=== PATIENT | male | born 1990 | race Caucasian/White ===

== ENCOUNTER → 2016-04-23 | Outpatient (REF) | payer OTHER | LOC: M SFHCLERA 13:45 | PROVIDERS: ATTEND Physician Assistant | DX: R50.9 Fever, unspecified (principal) ==

== ENCOUNTER → 2018-02-20 | Outpatient (REF) | payer OTHER | LOC: M SFHCLERA 13:58 | PROVIDERS: ATTEND Nurse Practitioner Family | DX: R53.81 Other malaise (principal) ==

== ENCOUNTER → 2018-02-24 | Outpatient (CLI) | payer OTHER ==
--- NOTE | 2018-02-24 20:52 | REP ---
CHEST PA AND LATERAL: 02/24/2018. Comparison: 01/28/2011. Clinical history: Cough, dyspnea, rhonchi on physical exam. Findings. Two-view show lung jaquez well inflated. There is peribronchial thickening and streaky densities suggesting bronchitis or reactive airway disease. No dense consolidation or pleural effusion. No air bronchograms. Heart is not enlarged and no lateral pleural thickening apical scarring or pneumothorax. Mid and upper lung zones clear. The aorta and airway intact. Hilar contours symmetric. Bony thorax without focal lesion. Impression: 1. Perihilar changes of bronchitis or reactive airway disease without dense consolidation or effusion. Electronically Signed by Kem Kothari MD 02/24/2018 08:55 P
== END ==
LOC: M LRY 18:38
PROVIDERS: ATTEND Nurse Practitioner Family
DX: R91.8 Other nonspecific abnormal finding of lung field (principal); R09.89 Other specified symptoms and signs involving the circulatory and respiratory systems

== ENCOUNTER → 2018-03-31 | Outpatient (REF) | payer OTHER | LOC: M SFHCLERA 20:45 | PROVIDERS: ATTEND Nurse Practitioner Family | DX: J45.901 Unspecified asthma with (acute) exacerbation (principal) ==

== ENCOUNTER 2019-04-23 13:25 | Emergency (ER) | payer OTHER ==
[~2019-04-23] VITALS: Ht 180.3 cm; Wt 202.2 kg
[2019-04-23] MEDS ORDERED: ISOVUE-370 76% 100ML VIAL (Q9967) As Ordered ONE (13:38)
[2019-04-23 14:14] LABS: BASO # 0.1 10^3/uL (0.0-0.2); BASO % 0.5 % (0.0-1.0); HEMATOCRIT 38.3 % (42.0-52.0); HEMOGLOBIN 12.6 g/dl (13.5-17.5); LYMPH # 2.3 10^3/uL (1.5-5.0); LYMPH % 17.5 % (24.0-44.0); MEAN CORPUSCULAR HEMOGLOBIN 29.1 pg (27.0-33.0); MEAN CORPUSCULAR HGB CONC 32.9 g/dl (32.0-36.5); MEAN CORPUSCULAR VOLUME 88.5 fl (80.0-96.0); MONO # 0.5 10^3/uL (0.0-0.8); MONO % 3.8 % (0.0-5.0); NEUTROPHILS # 10.4 10^3/uL (1.5-8.5); NEUTROPHILS % 77.4 % (36.0-66.0); PLATELET COUNT, AUTOMATED 317 10^3/uL (150-450); RED BLOOD COUNT 4.33 10^6/uL (4.30-6.10); WHITE BLOOD COUNT 13.4 10^3/uL (4.0-10.0)
[2019-04-23 14:25] LABS: INR 1.12; PROTHROMBIN TIME 14.1 SECONDS (11.8-14.0)
[2019-04-23 14:26] LABS: PARTIAL THROMBOPLASTIN TIME 27.1 SECONDS (25.0-38.4)
[2019-04-23] MEDS ORDERED: ONDANSETRON 4MG/2ML VIAL (J2405) IV ONE ×2 (14:30→14:45)
--- NOTE | 2019-04-23 14:31 | REP ---
Head CT without contrast: History: Trauma. Comparison study: No comparison study. CT findings: There is spray artifact related to patient body habitus in the lower levels of the scan. Bone window settings demonstrate an intact bony calvarium. There is no evidence of skull fracture or incidental bony calvarial lesion. The visualized paranasal sinuses appear clear. No intraorbital abnormality is seen. On soft tissue window setting images; the lateral, third, and fourth ventricles are normal in size and position. Soto-white differentiation pattern is normal above and below the tentorium. There are is no evidence of intracranial hemorrhage. No mass, edema, infarction, or midline shift is seen. No extra-axial fluid collection is appreciated. Impression: Negative noncontrast head CT. Electronically Signed by Ozzy Baker MD 04/23/2019 02:23 P
--- NOTE | 2019-04-23 14:33 | REP ---
CT study of the cervical spine without contrast: History: Trauma Technique: Helical scanning is acquired and overlapping 2 mm high resolution axial images were generated and reviewed at bone and soft tissue window settings. Coronal and sagittal multiplanar re-formations images are generated. CT findings: There is considerable image degradation artifact related to patient body habitus. There is no evidence of cervical spine element fracture. No skull base fracture is seen. Cervical vertebral body heights are preserved. Alignment is normal. Facet joints are normally aligned bilaterally at each cervical level on multiplanar re-formations images. There is no evidence of intraspinal or paraspinal hematoma. No extra vertebral abnormality is seen. Impression: Image degradation related to patient body habitus, otherwise negative CT study of the cervical spine without contrast. No fracture seen. Electronically Signed by Ozzy Baker MD 04/23/2019 02:25 P
[2019-04-23 14:37] LABS: ALBUMIN 3.2 GM/DL (3.2-5.2); ALT/SGPT 46 U/L (12-78); AMYLASE 28 U/L (25-115); BILIRUBIN,DIRECT 0.2 MG/DL (0.0-0.2); BILIRUBIN,TOTAL 0.6 MG/DL (0.2-1.0); BLOOD UREA NITROGEN 13 MG/DL (7-18); CALCIUM LEVEL 8.3 MG/DL (8.5-10.1); CARBON DIOXIDE LEVEL 24 MEQ/L (21-32); CHLORIDE LEVEL 106 MEQ/L (98-107); CK-MB VALUE MASS 1.3 NG/ML (<3.6); CPK CREATINE PHOSPHOKINASE 201 U/L (39-308); ETHYL ALCOHOL (ETHANOL) < 0.003 % (0.000-0.010); GLOMERULAR FILTRATION RATE > 60.0 (>60); GLUCOSE, FASTING 135 MG/DL (70-100); LIPASE 66 U/L (73-393); MB/CK RELATIVE INDEX 0.65 (< OR =4); SODIUM LEVEL 138 MEQ/L (136-145); TOTAL PROTEIN 6.7 GM/DL (6.4-8.2); TROPONIN I < 0.02 NG/ML (< 0.10)
[2019-04-23] MEDS ORDERED: MORPHINE 4 MG/ML 1ML VIAL/SYRINGE (J2270) IV ONE (14:45)
[2019-04-23 14:47] LABS: VENOUS BASE EXCESS -4.4 (-2.0-2.0); VENOUS HCO3 20.8 MEQ/L (23.0-27.0); VENOUS O2 SATURATION 73.7 % (60.0-80.0); VENOUS PARTIAL PRESSURE CO2 38.8 mmHg (38.0-50.0); VENOUS PARTIAL PRESSURE O2 41.8 mmHg (30.0-50.0); VENOUS PH 7.348 UNITS (7.330-7.430); VENOUS STANDARD HCO3 20.4 MEQ/L
[2019-04-23] MEDS: MORPHINE 4 MG/ML 1ML VIAL/SYRINGE (J2270) IV PRN ×2 (15:16→16:50)
--- NOTE | 2019-04-23 15:47 | REP ---
HISTORY: Pain after trauma. The examination is nondiagnostic in the lateral view due to technique and patient's body habitus. The AP view shows no gross abnormality. Consider CT. Electronically Signed by Rod Lamb DO 04/23/2019 03:54 P
--- NOTE | 2019-04-23 15:48 | REP ---
Limited abdominal ultrasound for free fluid after trauma: A low four quadrants of the abdomen are evaluated with ultrasound. No free fluid is identified by ultrasound. The study is limited because of patient body habitus. Impression: No free abdominal fluid is identified by ultrasound. Electronically Signed by Delta Clayton MD 04/23/2019 03:36 P
--- NOTE | 2019-04-23 15:49 | REP ---
HISTORY: Pain after trauma. The lateral view is nondiagnostic. There is no definition of any of the lumbar vertebral bodies. The AP examination shows no evidence of a gross abnormality. IMPRESSION: Limited examination showing no abnormality as described above. Electronically Signed by Rod Lamb DO 04/23/2019 03:54 P
--- NOTE | 2019-04-23 15:50 | REP ---
PORTABLE AP PELVIS: REASON FOR EXAM: Trauma. There is no evidence of an acute fracture. Electronically Signed by Rod Lamb DO 04/23/2019 03:54 P
--- NOTE | 2019-04-23 16:02 | REP ---
Portable chest, 02:15 p.m., single AP view with the patient supine: Comparison is 02/24/2018. There is an incomplete inspiratory effort. The visualized lung jaquez are clear. Cardiac size appears enlarged, however there has magnification from positioning. The brett, mediastinum, skeletal structures are. Impression: No definite acute cardiopulmonary findings. Electronically Signed by Delta Clayton MD 04/23/2019 02:41 P
[2019-04-23] MEDS ORDERED: CALC200T3 PO (16:06)
[2019-04-23] MEDS ORDERED: VITA100018 PO (16:06)
[2019-04-23] MEDS ORDERED: VITMTA PO (16:06)
[2019-04-23 16:54] VITALS: BP 107/49
--- NOTE | 2019-04-23 19:38 | ECGEPIP ---
[facility] - ED Test Date: 2019-04-23 Pat Name: SAMANTHA MCCLELLAND Department: Room: - Gender: Male [employer]: miranda : 1990 Requested By: Nelida Rothman Order Number: [id number] Reading MD: Param Freeman Measurements Intervals [place] Rate: 99 P: 43 TX: 175 QRS: -18 QRSD: 158 T: 83 QT: 398 QTc: 511 Interpretive Statements SINUS RHYTHM LEFT BUNDLE BRANCH BLOCK NO PRIORS FOR COMPARISON Electronically Signed on 04-23-2019 19:37:59 EDT by Param Freeman
== END 2019-04-23 17:18 | disposition short-term general hospital (02) ==
LOC: EDBD 13:25 → M ED 13:25
DX: M54.9 Dorsalgia, unspecified (principal); V43.52XA Car driver injured in collision with other type car in traffic accident, initial encounter; Y92.9 Unspecified place or not applicable; Y93.9 Activity, unspecified; Y99.9 Unspecified external cause status; I44.7 Left bundle-branch block, unspecified; E66.01 Morbid (severe) obesity due to excess calories; J45.909 Unspecified asthma, uncomplicated; Z87.891 Personal history of nicotine dependence; Z79.899 Other long term (current) drug therapy
CPT/HCPCS: 70450; 71045; 72072; 72110; 72125; 72170; 76705; 80047; 80048; 80076; 82150; 82550; 82553; 82803; 83690; 84484; 85025; 85610; 85730; 86850; 86900; 86901; 93005; 93041; 96374; 96375; 96376; 99285; G0480; J2270; J2405

== ENCOUNTER → 2019-08-24 | Outpatient (CLI) | payer OTHER ==
[~2019-08-24] MED LIST: CALC200T3 PO; VITA100018 PO; VITMTA PO
--- NOTE | 2019-08-25 15:02 | REP ---
BILATERAL RIB SERIES: Four views of bilateral ribs performed. There appear to be healed fractures of the lateral aspects of the left 7th and 8th ribs. No other rib fracture of bone lesion is seen bilaterally. An accompanying view of the chest demonstrates no acute infiltrate. Lungs are clear. Heart and mediastinum are unremarkable. IMPRESSION: Healed fractures lateral left 7th and 8th ribs. No other rib abnormality is seen. Electronically Signed by Delta Soto MD 08/25/2019 11:51 P
--- NOTE | 2019-08-25 15:03 | REP ---
THORACIC SPINE SERIES: Four AP and lateral views of the thoracic spine are performed. There is no compression fracture or malalignment with normal thoracic kyphosis. There is mild diffuse spurring. There is some minimal disc space narrowing and subchondral sclerosis at several mid thoracic levels. The posterior elements are intact. IMPRESSION: Mild diffuse degenerative changes. No fracture or dislocation. Electronically Signed by Delta Soto MD 08/25/2019 11:51 P
--- NOTE | 2019-08-25 15:03 | REP ---
LEFT SHOULDER, THREE VIEWS: There is no evidence of an acute fracture, dislocation, or intrinsic bone disease. No significant arthritic changes are seen. IMPRESSION: No fracture or dislocation. Electronically Signed by Delta Soto MD 08/25/2019 11:51 P
== END ==
LOC: M LRY 16:38
PROVIDERS: ATTEND Family Medicine
DX: S22.42XA Multiple fractures of ribs, left side, initial encounter for closed fracture (principal); X58.XXXA Exposure to other specified factors, initial encounter; Y92.9 Unspecified place or not applicable; M51.34 Other intervertebral disc degeneration, thoracic region

== ENCOUNTER → 2020-02-08 | Outpatient (CLI) | payer OTHER ==
--- NOTE | 2020-02-08 17:23 | REPVR ---
PROCEDURE INFORMATION: Exam: CT Thoracic Spine Without Contrast Exam date and time: 02/08/2020 5:13 PM Age: 29 years old Clinical indication: Pain in thoracic spine; Additional info: Thoracic back pain TECHNIQUE: Imaging protocol: Computed tomography images of the thoracic spine without contrast. Radiation optimization: All CT scans at this facility use at least one of these dose optimization techniques: automated exposure control; mA and/or kV adjustment per patient size (includes targeted exams where dose is matched to clinical indication); or iterative reconstruction. COMPARISON: CR SPINE THORACIC 3 VIEW 08/24/2019 4:47 PM FINDINGS: Vertebrae: No acute fracture. Normal alignment. Discs/Spinal canal/Neural foramina: No significant disc protrusion. No severe spinal canal stenosis. No significant neural foraminal narrowing. Soft tissues: Unremarkable. Stomach and bowel: This patient is status post gastric bypass surgery. IMPRESSION: 1. No acute findings in the thoracic spine. 2. This patient is status post gastric bypass surgery. Electronically signed by: Carlos Concepcion On 02/08/2020 17:23:43 PM
[2020-02-08 17:36] LABS: BASO # 0.1 10^3/uL (0.0-0.2); BASO % 0.5 % (0.0-1.0); EOS % 0.1 % (0.0-3.0); HEMATOCRIT 39.1 % (42.0-52.0); HEMOGLOBIN 12.3 g/dl (13.5-17.5); LYMPH # 1.7 10^3/uL (1.5-5.0); LYMPH % 17.7 % (24.0-44.0); MEAN CORPUSCULAR HGB CONC 31.5 g/dl (32.0-36.5); MEAN CORPUSCULAR VOLUME 89.1 fl (80.0-96.0); MONO # 0.5 10^3/uL (0.0-0.8); MONO % 5.5 % (0.0-5.0); NEUTROPHILS # 7.2 10^3/uL (1.5-8.5); NEUTROPHILS % 75.9 % (36.0-66.0); PLATELET COUNT, AUTOMATED 301 10^3/uL (150-450); RED BLOOD COUNT 4.39 10^6/uL (4.30-6.10); WHITE BLOOD COUNT 9.5 10^3/uL (4.0-10.0)
[2020-02-08 18:00] LABS: ERYTHROCYTE SEDIMENTATION RATE 43 mm/hr (0-15)
== END ==
LOC: M RAD 16:39
PROVIDERS: ATTEND Physician Assistant Medical
DX: M54.6 Pain in thoracic spine (principal)

== ENCOUNTER → 2020-03-29 | Outpatient (CLI) | payer OTHER ==
[2020-03-29 17:54] LABS: BASO # 0.1 10^3/uL (0.0-0.2); BASO % 0.6 % (0.0-1.0); EOS % 0.1 % (0.0-3.0); HEMATOCRIT 39.9 % (42.0-52.0); HEMOGLOBIN 12.7 g/dl (13.5-17.5); LYMPH # 1.4 10^3/uL (1.5-5.0); LYMPH % 14.3 % (24.0-44.0); MEAN CORPUSCULAR HEMOGLOBIN 28.1 pg (27.0-33.0); MEAN CORPUSCULAR HGB CONC 31.8 g/dl (32.0-36.5); MEAN CORPUSCULAR VOLUME 88.3 fl (80.0-96.0); MONO # 0.5 10^3/uL (0.0-0.8); MONO % 5.3 % (2.0-8.0); NEUTROPHILS # 7.5 10^3/uL (1.5-8.5); NEUTROPHILS % 79.3 % (36.0-66.0); PLATELET COUNT, AUTOMATED 288 10^3/uL (150-450); RED BLOOD COUNT 4.52 10^6/uL (4.30-6.10); WHITE BLOOD COUNT 9.5 10^3/uL (4.0-10.0)
[2020-03-29 18:50] LABS: ERYTHROCYTE SEDIMENTATION RATE 53 mm/hr (0-15)
== END ==
LOC: M LAB 16:22
PROVIDERS: ATTEND Physician Assistant Medical
DX: M54.5 Low back pain (principal)

== ENCOUNTER → 2020-03-29 | Outpatient (CLI) | payer OTHER ==
[2020-03-29 18:55] LABS: APPEARANCE, URINE HAZY (CLEAR); BACTERIA, URINE AUTO NEGATIVE (NEGATIVE); BILIRUBIN, URINE AUTO NEGATIVE (NEGATIVE); BLOOD, URINE BLOOD 2+ (NEGATIVE); COLOR, URINE YELLOW (YELLOW); GLUCOSE, URINE (UA) AUTO NEGATIVE (NEGATIVE); KETONE, URINE AUTO NEGATIVE (NEGATIVE); LEUKOCYTE ESTERASE, URINE AUTO NEGATIVE (NEGATIVE); MUCUS, URINE SMALL (NEGATIVE); NITRITE, URINE AUTO NEGATIVE (NEGATIVE); PROTEIN, URINE AUTO NEGATIVE (NEGATIVE); RBC, URINE AUTO 6 /HPF (0-3); SPECIFIC GRAVITY URINE AUTO 1.026 (1.002-1.035); SQUAMOUS EPITHELIAL CELL UR AU 1 /HPF (0-6); UROBILINOGEN, URINE AUTO 0.2 mg/dL (0.0-2.0); WBC, URINE AUTO 2 /HPF (0-3)
[2020-03-29 19:25] LABS: ALBUMIN 3.6 GM/DL (3.2-5.2); ALT/SGPT 19 U/L (12-78); BILIRUBIN,TOTAL 0.3 MG/DL (0.2-1.0); BLOOD UREA NITROGEN 16 MG/DL (7-18); CALCIUM LEVEL 8.8 MG/DL (8.5-10.1); CARBON DIOXIDE LEVEL 25 MEQ/L (21-32); CHLORIDE LEVEL 105 MEQ/L (98-107); CHOLESTEROL LEVEL 178 MG/DL (<200); CHOLESTEROL RISK RATIO 3.122 (<5); CREATININE FOR GFR 0.96 MG/DL (0.70-1.30); FERRITIN 30 NG/ML (26-388); GLOMERULAR FILTRATION RATE > 60.0 (>60); GLUCOSE, FASTING 83 MG/DL (70-100); HDL CHOLESTEROL 57 MG/DL (>40); IRON (FE) 39 UG/DL (65-175); LDL CHOLESTEROL 102 MG/DL (<100); NON-HDL-C 121 MG/DL; PERCENT SATURATION 9.8 % (19.7-50.0); SODIUM LEVEL 139 MEQ/L (136-145); TOTAL IRON BINDING CAPACITY 399 UG/DL (250-450); TOTAL PROTEIN 7.5 GM/DL (6.4-8.2); TRIGLYCERIDES LEVEL 97 MG/DL (<150)
[2020-03-29 19:28] LABS: VITAMIN B12 LEVEL 816 PG/ML (247-911)
[2020-03-29 19:30] LABS: MALB URINE SIEMENS 21.2 MG/L; MAU/CREAT RATIO 8.2 MCG/MG (0.0-30.0)
== END ==
LOC: M LAB 16:26
PROVIDERS: ATTEND Family Medicine
DX: Z98.84 Bariatric surgery status (principal); I10 Essential (primary) hypertension

== ENCOUNTER → 2020-09-11 | Outpatient (CLI) | payer OTHER ==
[2020-09-11 16:09] LABS: BLOOD UREA NITROGEN 11 MG/DL (7-18); CREATININE FOR GFR 0.91 MG/DL (0.70-1.30); GLOMERULAR FILTRATION RATE > 60.0 (>60)
== END ==
LOC: M LAB 14:40
PROVIDERS: ATTEND Pain Medicine Interventional Pain Medicine
DX: M47.814 Spondylosis without myelopathy or radiculopathy, thoracic region (principal)

== ENCOUNTER → 2020-09-15 | Outpatient (CLI) | payer OTHER | LOC: M PLARAD 12:15 | PROVIDERS: ATTEND Pain Medicine Interventional Pain Medicine | DX: M47.814 Spondylosis without myelopathy or radiculopathy, thoracic region (principal); Z53.9 Procedure and treatment not carried out, unspecified reason ==

== ENCOUNTER → 2020-09-25 | Outpatient (CLI) | payer OTHER ==
[~2020-09-25] MED LIST changes: +PROHANCE 279.3MG/ML 15ML VIAL As Ordered ONE; +PROHANCE 279.3MG/ML 5ML VIAL As Ordered ONE
--- NOTE | 2020-09-26 14:33 | REPVR ---
PROCEDURE INFORMATION: Exam: MR Thoracic Spine Without and With Contrast Exam date and time: 09/25/2020 8:09 PM Age: 29 years old Clinical indication: Condition or disease; Spondylosis; Thoracic; With radiculopathy TECHNIQUE: Imaging protocol: Multiplanar magnetic resonance images of the thoracic spine without and with contrast. Contrast material: PROHANCE; Contrast volume: 20 ml; Contrast route: INTRAVENOUS (IV); COMPARISON: CT Spine,thoracic w/o contrast 02/08/2020 5:14 PM FINDINGS: Vertebrae: There is no fracture or listhesis. Marrow signal is within normal limits. Spinal cord: Normal signal. No cord compression. Discs/Spinal canal/Neural foramina: No significant disc disease. No significant spinal canal stenosis. Soft tissues: Unremarkable. IMPRESSION: No acute abnormality or advanced degenerative change. Electronically signed by: Jacki Stoner On 09/26/2020 14:33:00 PM
== END ==
LOC: M RAD 18:12
PROVIDERS: ATTEND Pain Medicine Interventional Pain Medicine
DX: M47.814 Spondylosis without myelopathy or radiculopathy, thoracic region (principal)
CPT/HCPCS: 72157; A9576

== ENCOUNTER → 2021-06-18 | Outpatient (CLI) | payer OTHER ==
[~2021-06-18] MED LIST changes: -PROHANCE 279.3MG/ML 15ML VIAL As Ordered ONE; -PROHANCE 279.3MG/ML 5ML VIAL As Ordered ONE
== END ==
LOC: M WUC 13:38
PROVIDERS: ATTEND Family Medicine
DX: J45.909 Unspecified asthma, uncomplicated (principal); J40 Bronchitis, not specified as acute or chronic

== ENCOUNTER → 2023-07-14 | Outpatient (REF) | payer OTHER ==
[2023-07-14 17:53] LABS: BASO # 0.1 10^3/uL (0.0-0.2); BASO % 0.8 % (0.0-1.0); EOS # 0.2 10^3/uL (0.0-0.5); EOS % 2.4 % (0.0-3.0); HEMATOCRIT 39.8 % (42.0-52.0); HEMOGLOBIN 12.5 g/dl (13.5-17.5); LYMPH # 1.7 10^3/uL (1.5-5.0); LYMPH % 19.1 % (24.0-44.0); MEAN CORPUSCULAR HEMOGLOBIN 27.4 pg (27.0-33.0); MEAN CORPUSCULAR HGB CONC 31.4 g/dl (32.0-36.5); MEAN CORPUSCULAR VOLUME 87.1 fl (80.0-96.0); MONO # 0.4 10^3/uL (0.0-0.8); MONO % 4.1 % (2.0-8.0); NEUTROPHILS # 6.4 10^3/uL (1.5-8.5); NEUTROPHILS % 73.3 % (36.0-66.0); PLATELET COUNT, AUTOMATED 315 10^3/uL (150-450); RED BLOOD COUNT 4.57 10^6/uL (4.30-6.10); WHITE BLOOD COUNT 8.7 10^3/uL (4.0-10.0)
[2023-07-14 17:57] LABS: APPEARANCE, URINE HAZY (CLEAR); BACTERIA, URINE AUTO 1+ (NEGATIVE); BILIRUBIN, URINE AUTO NEGATIVE (NEGATIVE); BLOOD, URINE BLOOD 1+ (NEGATIVE); COLOR, URINE YELLOW (YELLOW); GLUCOSE, URINE (UA) AUTO NEGATIVE (NEGATIVE); KETONE, URINE AUTO NEGATIVE (NEGATIVE); LEUKOCYTE ESTERASE, URINE AUTO TRACE (NEGATIVE); MUCUS, URINE SMALL (NEGATIVE); NITRITE, URINE AUTO POSITIVE (NEGATIVE); PROTEIN, URINE AUTO NEGATIVE (NEGATIVE); RBC, URINE AUTO 4 /HPF (0-3); SPECIFIC GRAVITY URINE AUTO 1.019 (1.002-1.035); SQUAMOUS EPITHELIAL CELL UR AU 0 /HPF (0-6); UROBILINOGEN, URINE AUTO 0.2 mg/dL (0.0-2.0); WBC, URINE AUTO 17 /HPF (0-3)
[2023-07-14 18:23] LABS: ALBUMIN 3.4 G/DL (3.2-5.2); ALKALINE PHOSPHATASE 99 U/L (46-116); ALT/SGPT 21 U/L (7.0-40); AST/SGOT 9 U/L (<34); BILIRUBIN,TOTAL 0.6 MG/DL (0.3-1.2); BLOOD UREA NITROGEN 17 MG/DL (9-23); CALCIUM LEVEL 8.6 MG/DL (8.5-10.1); CARBON DIOXIDE LEVEL 26 MMOL/L (20-31); CHLORIDE LEVEL 104 MMOL/L (98-107); CREATININE FOR GFR 0.88 MG/DL (0.70-1.30); GLOMERULAR FILTRATION RATE > 60.0 (>60); GLUCOSE, FASTING 89 MG/DL (60-100); POTASSIUM SERUM 4.2 MMOL/L (3.5-5.1); SODIUM LEVEL 137 MMOL/L (136-145); TOTAL PROTEIN 7.1 G/DL (5.7-8.2)
[2023-07-14 18:24] LABS: CREATININE, URINE 149.3 MG/DL
== END ==
LOC: M SFHCLERA 13:41
PROVIDERS: ATTEND Family Medicine
DX: I10 Essential (primary) hypertension (principal)

== ENCOUNTER → 2024-12-23 | Outpatient (REF) | payer OTHER ==
[2024-12-23 18:42] LABS: ALT/SGPT 19 U/L (7.0-40); AST/SGOT 13 U/L (<34); CALCIUM LEVEL 8.1 MG/DL (8.5-10.1); CARBON DIOXIDE LEVEL 24 MMOL/L (20-31); CHLORIDE LEVEL 104 MMOL/L (98-107); CHOLESTEROL LEVEL 141 MG/DL (<200); CHOLESTEROL RISK RATIO 2.94 (<5); CREATININE FOR GFR 0.80 MG/DL (0.70-1.30); GLOMERULAR FILTRATION RATE > 90.0 (>60); IRON (FE) 51 UG/DL (65-175); LDL CHOLESTEROL 77.4 MG/DL (<100); NON-HDL-C 93.2 MG/DL; PERCENT SATURATION 14.6 % (19.7-50.0); POTASSIUM SERUM 4.2 MMOL/L (3.5-5.1); SODIUM LEVEL 139 MMOL/L (136-145); TRIGLYCERIDES LEVEL 79 MG/DL (<150)
[2024-12-23 18:45] LABS: BASO # 0.1 10^3/uL (0.0-0.2); BASO % 0.9 % (0.0-1.0); EOS # 0.0 10^3/uL (0.0-0.5); EOS % 0.0 % (0.0-3.0); LYMPH # 1.4 10^3/uL (1.5-5.0); LYMPH % 20.3 % (24.0-44.0); MONO # 0.3 10^3/uL (0.0-0.8); MONO % 4.0 % (2.0-8.0); NEUTROPHILS # 5.1 10^3/uL (1.5-8.5); NEUTROPHILS % 74.5 % (36.0-66.0); PLATELET COUNT, AUTOMATED 276 10^3/uL (150-450)
[2024-12-23 19:01] LABS: ESTIMATED AVERAGE GLUCOSE 114.0 MG/DL (60-110)
== END ==
LOC: M SFHCLERA 09:18
PROVIDERS: ATTEND Family Medicine
DX: Z00.00 Encounter for general adult medical examination without abnormal findings (principal)